=== PATIENT | female | born 1975 | race Caucasian/White ===

== ENCOUNTER 2016-07-27 20:39 | Emergency (ER) | payer SELFPAY ==
[~2016-07-27] VITALS: Ht 165.1 cm; Wt 64.4 kg
[2016-07-27 21:21] VITALS: BP 116/67
== END 2016-07-27 21:41 | disposition home or self-care (01) ==
LOC: ER 20:40
DX: H92.01 Otalgia, right ear (principal)
CPT/HCPCS: 99283; A4606; Z7610